=== PATIENT | female | born 1955 | race Caucasian/White ===

== ENCOUNTER 2017-05-08 07:32 | Emergency (ER) | payer BC ==
[2017-05-08 07:50] VITALS: BP 149/74
--- NOTE | 2017-05-15 18:28 | UC ---
Complaint Female HPI - HPI Summary HPI Summary: 62 YEAR OLD FEMALE PRESENTS WITH COMPLAINS OF VAGINAL DISCHARGE. SHE IS CERTAIN IT IS BV AND HAS TRIED MONISTAT WITH NO SUCCESS. - History Of Current Complaint Chief Complaint: UCGU Stated Complaint: PERSONAL Time Seen by Provider: 05/08/17 07:53 Hx Obtained From: Patient Onset/Duration: Gradual Onset Severity Initially: Moderate Severity Currently: Moderate Pain Intensity: 3 Pain Scale Used: 0-10 Numeric - 1 Character: Burning - Allergies/Home Medications Allergies/Adverse Reactions: Allergies Allergy/AdvReac Type Severity Reaction Status Date / Time Sulfa Drugs Allergy Severe lips swell Verified 05/08/17 07:46 Phenazopyridine Allergy Hives Verified 05/08/17 07:46 [From Pyridium] Home Medications: Home Medications Fluconazole 100 MG TAB* [Diflucan 100 MG TAB*] 150 mg PO ONCE 05/08/17 [History Confirmed 05/08/17] Probiotic Product [Probiotic Daily] 1 cap PO BID 05/08/17 [History Confirmed 11/19] PMH/Surg Hx/FS Hx/Imm Hx - Surgical History Surgical History: Yes Surgery Procedure, Year, and Place: hysterectomy, x 2. - Family History Known Family History: Positive: Hypertension, Other - osteoarthritis - Social History Alcohol Use: Weekly Alcohol Amount: 1 per week Substance Use Type: None Smoking Status (MU): Never Smoked Tobacco - Immunization History Most Recent Influenza Vaccination: Not the 2016/2017 Season Review of Systems Constitutional: Negative Skin: Negative Eyes: Negative ENT: Negative Respiratory: Negative Cardiovascular: Negative Gastrointestinal: Negative Genitourinary: Other - FISHY ODOR VAGINAL DISCHARGE Motor: Negative Neurovascular: Negative Musculoskeletal: Negative Neurological: Negative Psychological: Negative All Other Systems Reviewed And Are Negative: Yes Physical Exam Triage Information Reviewed: Yes Vital Signs: Initial Vital Signs Temp 36.6 C 05/08/17 07:43 Pulse 78 05/08/17 07:43 Resp 16 05/08/17 07:43 BP 149/74 05/08/17 07:43 Pulse Ox 99 05/08/17 07:43 Eye Exam: Normal ENT Exam: Normal Dental Exam: Normal Neck exam: Normal Neck: Positive: 1 Respiratory Exam: Normal Cardiovascular Exam: Normal Abdominal Exam: Normal Musculoskeletal Exam: Normal Neurological Exam: Normal Psychological Exam: Normal Skin Exam: Normal Complaint Female Dx - Differential Dx/Diagnosis Provider Diagnoses: VAGINAL DISCHARGE. VAGINAL BURNING Discharge - Discharge Plan Condition: Stable Disposition: HOME Prescriptions: Metronidazole [Flagyl 500 MG TAB] 500 mg PO BID #14 tab Patient Education Materials: Bacterial Vaginosis (ED) Referrals: Alia Piedra MD [Primary Care Provider] - If Needed
== END 2017-05-08 08:14 | disposition home or self-care (01) ==
LOC: UCCORT 07:32
DX: N89.8 Other specified noninflammatory disorders of vagina (principal); Z90.710 Acquired absence of both cervix and uterus; Z88.2 Allergy status to sulfonamides
CPT/HCPCS: 99212; G0463

== ENCOUNTER 2019-09-05 12:14 | Emergency (ER) | payer BC ==
[2019-09-05 12:21] VITALS: BP 160/83
--- NOTE | 2019-09-05 12:23 | UC ---
Throat Pain/Nasal Feliciano HPI - HPI Summary HPI Summary: 64 yo female presents with cough. She tells me that over the last 3 weeks she has had a dry cough and post nasal drip. She has been taking dayquill/nyquill with little relief. She does not smoke. Denies fever, chills, sinus symptoms, sore throat, SOB, chest pain. - History of Current Complaint Chief Complaint: UCGeneralIllness Stated Complaint: COUGH, SORE THROAT Time Seen by Provider: 09/05/19 12:23 Hx Obtained From: Patient Onset/Duration: Gradual Onset Severity: Mild Pain Intensity: 4 Pain Scale Used: 0-10 Numeric - Allergies/Home Medications Allergies/Adverse Reactions: Allergies Allergy/AdvReac Type Severity Reaction Status Date / Time phenazopyridine Allergy Hives Verified 09/05/19 12:22 [From Pyridium] Sulfa (Sulfonamide Allergy lips swell Verified 09/05/19 12:22 Antibiotics) PMH/Surg Hx/FS Hx/Imm Hx Cardiovascular History: Hypertension - Surgical History Surgical History: Yes Surgery Procedure, Year, and Place: hysterectomy, x 2. - Family History Known Family History: Positive: Hypertension, Other - osteoarthritis - Social History Lives: With Family Alcohol Use: Weekly Alcohol Amount: 1 per week Substance Use Type: None Smoking Status (MU): Never Smoked Tobacco - Immunization History Most Recent Influenza Vaccination: Not the 2017/2018 Season Review of Systems All Other Systems Reviewed And Are Negative: No Constitutional: Positive: Negative Skin: Positive: Negative Eyes: Positive: Negative ENT: Positive: Negative Respiratory: Positive: Cough Cardiovascular: Positive: Negative Gastrointestinal: Positive: Negative Neurological: Positive: Negative Psychological: Positive: Negative Physical Exam - Summary Physical Exam Summary: GENERAL: NAD. WDWN. No pain distress. SKIN: No rashes, sores, lesions, or open wounds. HEENT: Head: AT/NC Eyes: EOM intact. Conjunctiva clear without inflammation or discharge. Ears: Hearing grossly normal. TMs intact, no bulging, erythema, or edema. Nose: Nasal mucosa pink and moist. NTTP maxillary and frontal sinus. Throat: Posterior oropharynx without exudates, erythema, or tonsillar enlargement. Uvula midline. NECK: Supple. Nontender. No lymphadenopathy. CHEST: CTAB. No accessory muscle use. Breathing comfortably and in no distress. CV: RRR. Pulses intact. Cap refill <2seconds NEURO: Alert. PSYCH: Age appropriate behavior. Triage Information Reviewed: Yes Vital Signs: Initial Vital Signs Temp 97.9 F 09/05/19 12:19 Pulse 87 09/05/19 12:19 Resp 16 09/05/19 12:19 BP 160/83 09/05/19 12:19 Pulse Ox 100 09/05/19 12:19 Vital Signs Reviewed: Yes Throat Pain/Nasal Course/Dx - Course Course Of Treatment: Suspect allergies vs viral cough. - Differential Dx/Diagnosis Provider Diagnosis: Cough Discharge ED - Sign-Out/Discharge Documenting (check all that apply): Patient Departure All imaging exams completed and their final reports reviewed: No Studies - Discharge Plan Condition: Stable Disposition: HOME Prescriptions: Benzonatate CAP* [Tessalon 100 MG CAP*] 100 mg PO TID PRN #21 cap PRN Reason: Cough Codeine Phosphate/Guaifenesin [Guaifen-Codeine 100-10 mg/5 ml] 5 ml PO BEDTIME PRN #35 ml MDD 5ml PRN Reason: Cough Loratadine [Claritin] 10 mg PO DAILY #30 tablet Patient Education Materials: Allergies (ED), Acute Cough (ED) Referrals: Alia Piedra MD [Primary Care Provider] - Additional Instructions: If you develop a fever, shortness of breath, chest pain, new or worsening symptoms - please call your PCP or go to the ED immediately. Your blood pressure was high at todays visit. Please see your primary provider within 4 weeks for recheck and re-evaluation. - Billing Disposition and Condition Condition: STABLE Disposition: Home
== END 2019-09-05 12:37 | disposition home or self-care (01) ==
LOC: UCEAST 12:14
DX: R05 Cough (principal); I10 Essential (primary) hypertension; R09.82 Postnasal drip; Z88.2 Allergy status to sulfonamides; Z88.6 Allergy status to analgesic agent
CPT/HCPCS: 99212; G0463